=== PATIENT | female | born 1950 ===

== ENCOUNTER 2021-03-30 18:12 | Inpatient (IN) | payer MEDICARE, OTHER ==
[~2021-03-30] VITALS: Ht 172.7 cm; Wt 87.4 kg
--- NOTE | 2021-03-30 18:29 | NUR ---
BIB EMS FROM [facility] FOR FEVERS, NIGHT SWEATS, N/V AND SOME DIARRHEA. PER PT HAD TEMP 101F 3 DAYS AGO. SICK CONTACT AT HOME WHO HAD A "BAD COLD". PT HAS BEEN USING HER INHALER W/ SOME RELIEF. DIZZINESS WHEN STANDING. IN ROOM PT NOTED TO INCREASE HR TO 184-190. ERP DR. FORTE MADE AWARE STAT. PT IN THIS RHYTM FOR 10-15 SECONDS THEN GOES BACK TO HR 90-92. EKG COMPLETED. PT GIVEN LEVOFLOXACIN 750 MG IV AND KDUR 40 MEQ PO. PT WAS DX W/ GIB (HGB 7.5, HCT. 23.3, GUAIC+), COPD EXACERBATION, HYPOKALEMIA, ANEMIA. VS CERTIFIED FIRST ASSISTANT HR 95, BP 106/64, RR 17, 97% RA. PT RESTING ON GURNEY. NADN. MONITORS APPLIED. VSS. ERP DR. FORTE AT BEDSIDE FOR EVAL. AWARE OF PT TEMP 103.0
[2021-03-30] MEDS ORDERED: ACETAMINOPHEN 500 MG TABLET ONE (18:44)
[2021-03-30] MEDS ORDERED: ACETAMINOPHEN 500 MG TABLET PO ONE ×2 (19:00)
[2021-03-30 19:13] LABS: MEAN CORPUSCULAR HEMOGLOBIN 36.1 pg (27.0-34.8); MEAN CORPUSCULAR HGB CONC 32.9 g/dL (32.4-35.8); MEAN PLATELET VOLUME 9.9 fL (7.4-10.4); PLATELET COUNT 207 x10^3/uL (130-400); RED BLOOD COUNT 2.04 x10^6/uL (3.82-5.3); RED CELL DISTRIBUTION WIDTH 19.4 % (9.6-15.2)
[2021-03-30 19:22] LABS: ANION GAP 9 mmol/L (5-15); CALCIUM 8.1 mg/dL (8.5-10.1); CHLORIDE 104 mmol/L (98-107); CREATININE 1.25 mg/dL (0.55-1.02)
[2021-03-30] MEDS ORDERED: SODIUM CHLORIDE FLUSH 10ML SYR IVF ONE (19:30)
--- NOTE | 2021-03-30 19:38 | NUR ---
PT TEMP NOTED TO DECREASE TO 102.5 W/ BP NOW AT 91/39. ERP DR. FORTE NOTIFIED.
[2021-03-30 19:43] LABS: <PLATELET ESTIMATE> ADEQUATE; BAND#(MANUAL) 0.91 x10^3/uL; BANDS%(MANUAL) 7 % (0-7); LYMPH#(MANUAL) 1.04 x10^3/uL (1-3.4); LYMPHS% (MANUAL) 8 % (22-44); MONOS#(MANUAL) 1.04 x10^3/uL (0.3-2.7); MONOS% (MANUAL) 8 % (2-9); SEG#(MANUAL) 10.01 x10^3/uL (1.8-6.8); SEGS% (MANUAL) 77 % (42-75)
--- NOTE | 2021-03-30 19:43 | NUR ---
PER ERP DR. FORTE PT HAS POSSIBLE GIB NO IBUPROFEN FOR TEMP. ATTEMPT IVF AND ICE UNDER ARMPITS TO COOL PT AND GIVE TYLENOL LONGER TIME TO BRING TEMP DOWN.
[2021-03-30 19:44] LABS: LARGE PLATELETS 1+
[2021-03-30 19:45] LABS: ANISOCYTOSIS 1+; MICROCYTOSIS 1+; OVALOCYTES 1+
[2021-03-30 19:46] LABS: HYPOCHROMIA 1+; POLYCHROMASIA 1+; TEAR DROPS 1+
[2021-03-30] MEDS ORDERED: SODIUM CHLORIDE 0.9% 1,000ML IVBOLUS ONE (20:00)
--- NOTE | 2021-03-30 20:05 | NUR ---
PER BLOOD BANK PT HAS ANTIBODIES IN BLOOD AND IT MAY TAKE WELL OVER AN HR TO GET THE BLOOD PT NEEDS. PER ERP DR. FORTE PT OKAY TO WAIT. DARYL IN ED NEGATIVE.
[2021-03-30] MEDS ORDERED: AMLO-211 PO (20:10)
[2021-03-30] MEDS ORDERED: ALEN10TA10 PO (20:10)
[2021-03-30] MEDS ORDERED: PANT40TA6 PO (20:10)
[2021-03-30] MEDS ORDERED: HYDR-826 PO (20:10)
[2021-03-30] MEDS ORDERED: FERR324T5 PO (20:10)
[2021-03-30] MEDS ORDERED: TIOT18CA INH (20:10)
[2021-03-30] MEDS ORDERED: VENL150C PO (20:10)
[2021-03-30] MEDS ORDERED: OXYB5TAB10 PO (20:10)
[2021-03-30] MEDS ORDERED: ESTR1TAB17 PO (20:10)
[2021-03-30] MEDS ORDERED: ALBU18HF INH (20:10)
--- NOTE | 2021-03-30 20:37 | NUR ---
PT RESTING ON GURNEY. NADN. CARROLL.
--- NOTE | 2021-03-30 20:43 | NUR ---
Joesph LANDRY AT BEDSIDE FOR ADMISSION.
--- NOTE | 2021-03-30 20:56 | NUR ---
BEDSIDE REPORT RECEIVED FROM HELDER DISLA
--- NOTE | 2021-03-30 20:56 | NUR ---
REPORT GIVEN TO TOYA HILLMAN RN.
[2021-03-30 21:17] LABS: MICROSCOPIC INDICATED
[2021-03-30 21:59] VITALS: BP 93/43
[2021-03-30] MEDS ORDERED: ACETAMINOPHEN 325 MG TABLET PO PRN (22:00)
[2021-03-30] MEDS ORDERED: MELATONIN 5 MG TABLET PO PRN (22:00)
[2021-03-30] MEDS ORDERED: ONDANSETRON 2MG/ML, 2ML IVPush PRN (22:00)
[2021-03-30] MEDS ORDERED: DOCUSATE 100 MG CAPSULE PO PRN (22:00)
[2021-03-30] MEDS: SODIUM CHLORIDE 0.9% 1,000 ML IV SCH (22:00)
[2021-03-30] MEDS ORDERED: SODIUM CHLORIDE FLUSH 10ML SYR IVF PRN (22:00)
--- NOTE | 2021-03-30 22:06 | NUR ---
Pt to be admitted to [facility], room 401. Report called to BRODY DISLA.
[2021-03-30 22:15] VITALS: BP 104/45
[2021-03-30] MEDS ORDERED: LIDODERM 5% PATCH TD PRN (22:30)
[2021-03-30] MEDS ORDERED: ALBUTEROL HFA 90 MCG/SPRAY INH PRN (22:30)
[2021-03-30 23:17] VITALS: BP 100/60
[2021-03-30 23:27] VITALS: BP 102/65
[2021-03-30 23:54] VITALS: BP 98/61
[2021-03-31] VITALS (7 sets, daily range): BP systolic 99–115; BP diastolic 59–68
[2021-03-31] MEDS ORDERED: POTASSIUM CHLORIDE 20 MEQ TAB.ER.PRT PO ONE (00:30)
[2021-03-31] MEDS ORDERED: PANTOPRAZOLE 40 MG IV IVPush SCH (07:30)
[2021-03-31] MEDS: TIOTROPIUM BROMIDE 18 MCG/INH INH SCH (09:00)
[2021-03-31 09:20] LABS: CALCIUM 7.5 mg/dL (8.5-10.1); CHLORIDE 116 mmol/L (98-107); MEAN CORPUSCULAR HEMOGLOBIN 34.4 pg (27.0-34.8); MEAN CORPUSCULAR HGB CONC 33.6 g/dL (32.4-35.8); MEAN PLATELET VOLUME 9.2 fL (7.4-10.4); PLATELET COUNT 152 x10^3/uL (130-400); RED BLOOD COUNT 2.43 x10^6/uL (3.82-5.3); RED CELL DISTRIBUTION WIDTH 24.1 % (9.6-15.2)
[2021-03-31 09:26] LABS: ANION GAP 5 mmol/L (5-15)
[2021-03-31] MEDS ORDERED: CEFTRIAXONE 2 GM in DEXTROSE 5% 50 ML IVPB SCH (09:30)
[2021-03-31] MEDS: AZITHROMYCIN 500 MG TABLET PO SCH (10:36)
[2021-03-31] MEDS: PANTOPRAZOLE 40MG TABLET PO SCH (10:37)
[2021-03-31] MEDS: FERROUS SULFATE 325 MG TABLET PO SCH ×2 (10:37→18:28)
[2021-03-31] MEDS: OXYBUTYNIN CHLORIDE 5 MG TABLET PO SCH ×2 (10:37→20:51)
[2021-03-31] MEDS: VENLAFAXINE 75 MG CAP ER PO SCH (10:37)
[2021-03-31] MEDS: ESTRADIOL 1 MG TABLET PO SCH (10:38)
[2021-03-31 10:50] LABS: BAND#(MANUAL) 1.71 x10^3/uL; BANDS%(MANUAL) 18 % (0-7); LYMPH#(MANUAL) 0.86 x10^3/uL (1-3.4); LYMPHS% (MANUAL) 9 % (22-44); METAMYELOCYTES# (MANUAL) 0.38 x10^3/uL (0-0); METAMYELOCYTES% (MANUAL) 4 % (0-1); MONOS#(MANUAL) 0.86 x10^3/uL (0.3-2.7); MONOS% (MANUAL) 9 % (2-9); MYELOCYTES% (MANUAL) 1 % (0-0); SEG#(MANUAL) 5.61 x10^3/uL (1.8-6.8); SEGS% (MANUAL) 59 % (42-75)
[2021-03-31 10:51] LABS: <PLATELET ESTIMATE> ADEQUATE; <PLT MORPHOLOGY> NORMAL PLT MORPH; ANISOCYTOSIS 2+
[2021-03-31 10:52] LABS: OVALOCYTES 1+; POLYCHROMASIA 1+; TEAR DROPS 1+
[2021-03-31] MEDS ORDERED: LEVOFLOXACIN/PMX 750MG/150ML 150 ML IV SCH (12:00)
[2021-03-31] MEDS: SODIUM CHLORIDE 0.9% 1,000 ML IV SCH ×2 (12:54→20:50)
[2021-04-01 01:47] VITALS: BP 105/65
[2021-04-01] MEDS: SODIUM CHLORIDE 0.9% 1,000 ML IV SCH ×3 (05:20→21:28)
[2021-04-01 06:33] LABS: MEAN CORPUSCULAR HEMOGLOBIN 34.9 pg (27.0-34.8); MEAN CORPUSCULAR HGB CONC 33.4 g/dL (32.4-35.8); MEAN PLATELET VOLUME 9.3 fL (7.4-10.4); PLATELET COUNT 144 x10^3/uL (130-400); RED BLOOD COUNT 2.42 x10^6/uL (3.82-5.3)
[2021-04-01 06:37] LABS: CHLORIDE 117 mmol/L (98-107)
[2021-04-01 06:47] LABS: ALANINE AMINOTRANSFERASE 24 U/L (12-78); ALBUMIN 2.2 g/dL (3.4-5.0); ALKALINE PHOSPHATASE 60 U/L (45-117); ANION GAP 5 mmol/L (5-15); BILIRUBIN,TOTAL 0.4 mg/dL (0.2-1.0); CALCIUM 7.5 mg/dL (8.5-10.1); CREATININE 0.83 mg/dL (0.55-1.02); TOTAL PROTEIN 6.1 g/dL (6.4-8.2)
[2021-04-01 07:02] LABS: <PLATELET ESTIMATE> ADEQUATE; <PLT MORPHOLOGY> NORMAL PLT MORPH; ANISOCYTOSIS 2+; BAND#(MANUAL) 0.15 x10^3/uL; BANDS%(MANUAL) 2 % (0-7); LYMPH#(MANUAL) 1.73 x10^3/uL (1-3.4); LYMPHS% (MANUAL) 23 % (22-44); METAMYELOCYTES# (MANUAL) 0.38 x10^3/uL (0-0); METAMYELOCYTES% (MANUAL) 5 % (0-1); MICROCYTOSIS 1+; MONOS#(MANUAL) 0.53 x10^3/uL (0.3-2.7); MONOS% (MANUAL) 7 % (2-9); MYELOCYTES# (MANUAL) 0.15 x10^3/uL (0-0); MYELOCYTES% (MANUAL) 2 % (0-0); OVALOCYTES 1+; POLYCHROMASIA 1+; SEG#(MANUAL) 4.58 x10^3/uL (1.8-6.8); SEGS% (MANUAL) 61 % (42-75); TEAR DROPS 1+
[2021-04-01 08:31] VITALS: BP 100/57
[2021-04-01] MEDS: AZITHROMYCIN 500 MG TABLET PO SCH (08:37)
[2021-04-01] MEDS: ESTRADIOL 1 MG TABLET PO SCH (08:37)
[2021-04-01] MEDS: VENLAFAXINE 75 MG CAP ER PO SCH (08:37)
[2021-04-01] MEDS: OXYBUTYNIN CHLORIDE 5 MG TABLET PO SCH ×2 (08:38→20:39)
[2021-04-01 09:26] LABS: OCCULT BLOOD NEGATIVE (NEGATIVE)
[2021-04-01] MEDS: PIPERACILLIN/TAZO 3.375 GM in DEXTROSE 5% 50 ML IVPB SCH ×2 (09:29→17:05)
[2021-04-01] MEDS: PANTOPRAZOLE 40MG TABLET PO SCH (09:29)
[2021-04-01] MEDS: FERROUS SULFATE 325 MG TABLET PO SCH ×2 (09:29→17:22)
[2021-04-01] MEDS: TIOTROPIUM BROMIDE 18 MCG/INH INH SCH (09:30)
[2021-04-01 13:25] VITALS: BP 105/67
[2021-04-01 19:15] VITALS: BP 109/73
[2021-04-02] MEDS: PIPERACILLIN/TAZO 3.375 GM in DEXTROSE 5% 50 ML IVPB SCH ×3 (01:10→16:11)
[2021-04-02 01:45] VITALS: BP 101/68
[2021-04-02 06:27] LABS: MEAN CORPUSCULAR HGB CONC 32.6 g/dL (32.4-35.8); MEAN PLATELET VOLUME 10.9 fL (7.4-10.4); PLATELET COUNT 173 x10^3/uL (130-400); RED CELL DISTRIBUTION WIDTH 24.4 % (9.6-15.2)
[2021-04-02 06:33] LABS: ALBUMIN 2.1 g/dL (3.4-5.0); ANION GAP 7 mmol/L (5-15); CALCIUM 7.6 mg/dL (8.5-10.1); CHLORIDE 116 mmol/L (98-107)
[2021-04-02] MEDS: PANTOPRAZOLE 40MG TABLET PO SCH (06:34)
[2021-04-02] MEDS: SODIUM CHLORIDE 0.9% 1,000 ML IV SCH ×2 (06:35→14:17)
[2021-04-02 06:36] LABS: ALANINE AMINOTRANSFERASE 24 U/L (12-78); ALKALINE PHOSPHATASE 65 U/L (45-117); BILIRUBIN,TOTAL 0.6 mg/dL (0.2-1.0); CREATININE 0.84 mg/dL (0.55-1.02); TOTAL PROTEIN 5.9 g/dL (6.4-8.2)
[2021-04-02 06:48] VITALS: BP 105/61
[2021-04-02 07:08] LABS: METAMYELOCYTES# (MANUAL) 0.14 x10^3/uL (0-0); METAMYELOCYTES% (MANUAL) 2 % (0-1)
[2021-04-02 07:09] LABS: <PLATELET ESTIMATE> ADEQUATE; ANISOCYTOSIS 2+; BAND#(MANUAL) 1.09 x10^3/uL; BANDS%(MANUAL) 16 % (0-7); EOS#(MANUAL) 0.07 x10^3/uL (0.0-0.4); EOS% (MANUAL) 1 % (1-7); LYMPH#(MANUAL) 1.43 x10^3/uL (1-3.4); LYMPHS% (MANUAL) 21 % (22-44); MONOS#(MANUAL) 0.61 x10^3/uL (0.3-2.7); MONOS% (MANUAL) 9 % (2-9); OVALOCYTES 1+; SEG#(MANUAL) 3.47 x10^3/uL (1.8-6.8); SEGS% (MANUAL) 51 % (42-75); TEAR DROPS 1+
[2021-04-02 07:10] LABS: <PLT MORPHOLOGY> NORMAL PLT MORPH
[2021-04-02] MEDS: ESTRADIOL 1 MG TABLET PO SCH (08:42)
[2021-04-02] MEDS: AZITHROMYCIN 500 MG TABLET PO SCH (08:43)
[2021-04-02] MEDS: OXYBUTYNIN CHLORIDE 5 MG TABLET PO SCH ×2 (08:43→21:53)
[2021-04-02] MEDS: FERROUS SULFATE 325 MG TABLET PO SCH ×2 (08:43→16:11)
[2021-04-02] MEDS: VENLAFAXINE 75 MG CAP ER PO SCH (08:43)
[2021-04-02] MEDS: TIOTROPIUM BROMIDE 18 MCG/INH INH SCH (08:44)
[2021-04-02] MEDS ORDERED: CODEINE SULFATE 30 MG TABLET PO PRN (12:00)
[2021-04-02] MEDS ORDERED: BISACODYL 10 MG SUPP PR PRN (12:30)
[2021-04-02] MEDS ORDERED: GUAIFENESIN/COD200MG-20MG/10ML LIQUID PO PRN (13:00)
[2021-04-02 14:00] VITALS: BP 105/69
[2021-04-02] MEDS: POLYETHYLENE GLYCOL 17 GM PACKET NG SCH (14:17)
[2021-04-02 18:05] LABS: OCCULT BLOOD NEGATIVE (NEGATIVE)
[2021-04-02 18:30] VITALS: BP 107/59
[2021-04-02] MEDS: DOCUSATE 100 MG CAPSULE PO SCH (21:53)
[2021-04-03 00:53] VITALS: BP 113/68
[2021-04-03] MEDS: PIPERACILLIN/TAZO 3.375 GM in DEXTROSE 5% 50 ML IVPB SCH ×3 (01:11→17:07)
[2021-04-03 06:23] LABS: MEAN CORPUSCULAR HGB CONC 32.5 g/dL (32.4-35.8); MEAN PLATELET VOLUME 10.5 fL (7.4-10.4); PLATELET COUNT 191 x10^3/uL (130-400); RED BLOOD COUNT 2.37 x10^6/uL (3.82-5.3); RED CELL DISTRIBUTION WIDTH 23.6 % (9.6-15.2)
[2021-04-03 06:54] LABS: BASOS#(MANUAL) 0.13 x10^3/uL (0-0.1); BASOS% (MANUAL) 2 % (0-1); EOS#(MANUAL) 0.07 x10^3/uL (0.0-0.4); EOS% (MANUAL) 1 % (1-7); LYMPH#(MANUAL) 1.12 x10^3/uL (1-3.4); LYMPHS% (MANUAL) 17 % (22-44); MONOS#(MANUAL) 0.46 x10^3/uL (0.3-2.7); MONOS% (MANUAL) 7 % (2-9)
[2021-04-03 06:55] LABS: BAND#(MANUAL) 0.53 x10^3/uL; BANDS%(MANUAL) 8 % (0-7); METAMYELOCYTES# (MANUAL) 0.07 x10^3/uL (0-0); METAMYELOCYTES% (MANUAL) 1 % (0-1); SEG#(MANUAL) 4.22 x10^3/uL (1.8-6.8); SEGS% (MANUAL) 64 % (42-75)
[2021-04-03 06:57] LABS: <PLATELET ESTIMATE> ADEQUATE; <PLT MORPHOLOGY> NORMAL PLT MORPH; ANISOCYTOSIS 1+; OVALOCYTES 1+; TEAR DROPS 1+
[2021-04-03 08:13] VITALS: BP 117/65
[2021-04-03] MEDS: DOCUSATE 100 MG CAPSULE PO SCH ×2 (09:00→21:17)
[2021-04-03] MEDS: POLYETHYLENE GLYCOL 17 GM PACKET NG SCH (09:00)
[2021-04-03] MEDS: FERROUS SULFATE 325 MG TABLET PO SCH ×2 (10:52→17:07)
[2021-04-03] MEDS: ESTRADIOL 1 MG TABLET PO SCH (10:52)
[2021-04-03] MEDS: AZITHROMYCIN 500 MG TABLET PO SCH (10:52)
[2021-04-03] MEDS: VENLAFAXINE 75 MG CAP ER PO SCH (10:52)
[2021-04-03] MEDS: SODIUM CHLORIDE 0.9% 1,000 ML IV SCH (10:52)
[2021-04-03] MEDS: OXYBUTYNIN CHLORIDE 5 MG TABLET PO SCH ×2 (10:52→21:16)
[2021-04-03] MEDS: TIOTROPIUM BROMIDE 18 MCG/INH INH SCH (10:53)
[2021-04-03 10:59] LABS: OCCULT BLOOD NEGATIVE (NEGATIVE)
[2021-04-03] MEDS: PANTOPRAZOLE 40MG TABLET PO SCH (11:12)
[2021-04-03 14:23] VITALS: BP 106/68
[2021-04-03 17:05] VITALS: BP 117/63
[2021-04-03] MEDS: METOPROLOL TARTRATE 25 MG TAB PO SCH (17:07)
[2021-04-03 19:07] VITALS: BP 117/63
[2021-04-03] MEDS: APIXABAN 5 MG TABLET PO SCH (21:17)
[2021-04-04] MEDS: PIPERACILLIN/TAZO 3.375 GM in DEXTROSE 5% 50 ML IVPB SCH ×3 (01:06→16:27)
[2021-04-04 01:58] VITALS: BP 119/65
[2021-04-04] MEDS: METOPROLOL TARTRATE 25 MG TAB PO SCH ×2 (06:00→17:37)
[2021-04-04 07:51] VITALS: BP 125/68
[2021-04-04] MEDS: DOCUSATE 100 MG CAPSULE PO SCH ×2 (08:13→22:32)
[2021-04-04] MEDS: POLYETHYLENE GLYCOL 17 GM PACKET NG SCH (08:13)
[2021-04-04] MEDS: AZITHROMYCIN 500 MG TABLET PO SCH (08:14)
[2021-04-04] MEDS: APIXABAN 5 MG TABLET PO SCH ×2 (08:14→22:32)
[2021-04-04] MEDS: ESTRADIOL 1 MG TABLET PO SCH (08:15)
[2021-04-04] MEDS: VENLAFAXINE 75 MG CAP ER PO SCH (08:15)
[2021-04-04] MEDS: FERROUS SULFATE 325 MG TABLET PO SCH ×2 (08:15→16:27)
[2021-04-04] MEDS: OXYBUTYNIN CHLORIDE 5 MG TABLET PO SCH ×2 (08:15→22:31)
[2021-04-04] MEDS: PANTOPRAZOLE 40MG TABLET PO SCH (08:20)
[2021-04-04] MEDS: TIOTROPIUM BROMIDE 18 MCG/INH INH SCH (08:21)
[2021-04-04 10:48] LABS: MEAN CORPUSCULAR HGB CONC 32.7 g/dL (32.4-35.8); MEAN PLATELET VOLUME 10.8 fL (7.4-10.4); PLATELET COUNT 215 x10^3/uL (130-400); RED BLOOD COUNT 2.36 x10^6/uL (3.82-5.3)
[2021-04-04 11:39] LABS: ANISOCYTOSIS 1+; BAND#(MANUAL) 0.29 x10^3/uL; BANDS%(MANUAL) 5 % (0-7); EOS#(MANUAL) 0.23 x10^3/uL (0.0-0.4); EOS% (MANUAL) 4 % (1-7); LYMPH#(MANUAL) 1.03 x10^3/uL (1-3.4); LYMPHS% (MANUAL) 18 % (22-44); METAMYELOCYTES# (MANUAL) 0.06 x10^3/uL (0-0); METAMYELOCYTES% (MANUAL) 1 % (0-1); MONOS#(MANUAL) 0.57 x10^3/uL (0.3-2.7); MONOS% (MANUAL) 10 % (2-9); MYELOCYTES# (MANUAL) 0.06 x10^3/uL (0-0); MYELOCYTES% (MANUAL) 1 % (0-0); OVALOCYTES 1+; SEG#(MANUAL) 3.48 x10^3/uL (1.8-6.8); SEGS% (MANUAL) 61 % (42-75)
[2021-04-04 11:40] LABS: <PLATELET ESTIMATE> ADEQUATE; <PLT MORPHOLOGY> NORMAL PLT MORPH; TEAR DROPS 1+
[2021-04-04 12:07] VITALS: BP 146/70
[2021-04-04 17:37] VITALS: BP 119/69
[2021-04-04 18:28] VITALS: BP 113/68
[2021-04-05] MEDS: PIPERACILLIN/TAZO 3.375 GM in DEXTROSE 5% 50 ML IVPB SCH ×3 (01:20→13:34)
[2021-04-05 01:36] VITALS: BP 109/60
[2021-04-05 03:46] LABS: MEAN CORPUSCULAR HEMOGLOBIN 34.2 pg (27.0-34.8); MEAN CORPUSCULAR HGB CONC 33.1 g/dL (32.4-35.8); MEAN PLATELET VOLUME 10.4 fL (7.4-10.4); PLATELET COUNT 223 x10^3/uL (130-400); RED BLOOD COUNT 2.45 x10^6/uL (3.82-5.3); RED CELL DISTRIBUTION WIDTH 22.7 % (9.6-15.2)
[2021-04-05 03:56] LABS: ANION GAP 5 mmol/L (5-15); CALCIUM 8.9 mg/dL (8.5-10.1); CHLORIDE 111 mmol/L (98-107); CREATININE 0.83 mg/dL (0.55-1.02)
[2021-04-05 04:30] LABS: ANISOCYTOSIS 1+; BAND#(MANUAL) 0.74 x10^3/uL; BANDS%(MANUAL) 11 % (0-7); BASOS#(MANUAL) 0.07 x10^3/uL (0-0.1); BASOS% (MANUAL) 1 % (0-1); EOS#(MANUAL) 0.13 x10^3/uL (0.0-0.4); EOS% (MANUAL) 2 % (1-7); LYMPH#(MANUAL) 1.34 x10^3/uL (1-3.4); LYMPHS% (MANUAL) 20 % (22-44); METAMYELOCYTES# (MANUAL) 0.07 x10^3/uL (0-0); METAMYELOCYTES% (MANUAL) 1 % (0-1); MONOS#(MANUAL) 0.34 x10^3/uL (0.3-2.7); MONOS% (MANUAL) 5 % (2-9); SEG#(MANUAL) 4.02 x10^3/uL (1.8-6.8); SEGS% (MANUAL) 60 % (42-75)
[2021-04-05 04:31] LABS: <PLATELET ESTIMATE> ADEQUATE; <PLT MORPHOLOGY> NORMAL PLT MORPH; OVALOCYTES 1+; TEAR DROPS 1+
[2021-04-05] MEDS: METOPROLOL TARTRATE 25 MG TAB PO SCH (06:00)
[2021-04-05] MEDS: TIOTROPIUM BROMIDE 18 MCG/INH INH SCH (08:35)
[2021-04-05] MEDS: ESTRADIOL 1 MG TABLET PO SCH (08:37)
[2021-04-05] MEDS: OXYBUTYNIN CHLORIDE 5 MG TABLET PO SCH (08:37)
[2021-04-05] MEDS: AZITHROMYCIN 500 MG TABLET PO SCH (08:37)
[2021-04-05] MEDS: APIXABAN 5 MG TABLET PO SCH (08:37)
[2021-04-05] MEDS: FERROUS SULFATE 325 MG TABLET PO SCH (08:38)
[2021-04-05] MEDS: DOCUSATE 100 MG CAPSULE PO SCH (08:38)
[2021-04-05] MEDS: VENLAFAXINE 75 MG CAP ER PO SCH (08:38)
[2021-04-05] MEDS: PANTOPRAZOLE 40MG TABLET PO SCH (08:38)
[2021-04-05] MEDS: POLYETHYLENE GLYCOL 17 GM PACKET NG SCH (08:38)
[2021-04-05 08:47] VITALS: BP 127/65
[2021-04-05] MEDS ORDERED: AMLO2.5T5 PO (11:58)
[2021-04-05] MEDS ORDERED: AMOX1TAB64 PO (11:58)
[2021-04-05] MEDS ORDERED: APIX5TAB PO (11:58)
[2021-04-06] MEDS ORDERED: AMLO2.5T5 PO (11:08)
[2021-04-06] MEDS ORDERED: AMOX1TAB64 PO (11:08)
[2021-04-06] MEDS ORDERED: APIX5TAB PO (11:08)
== END 2021-04-05 14:56 | disposition home or self-care (01) | DRG 871 ==
LOC: ED 22:34 → EDIP 22:35 → 4WST 22:46
PROVIDERS: ADMIT Internal Medicine; ATTEND Internal Medicine
PROC: 30233N1 Transfusion of Nonautologous Red Blood Cells into Peripheral Vein, Percutaneous Approach (ICD-10-PCS; principal; 2021-03-30)
DX: A41.9 Sepsis, unspecified organism (principal); J18.9 Pneumonia, unspecified organism; N17.0 Acute kidney failure with tubular necrosis; J44.0 Chronic obstructive pulmonary disease with (acute) lower respiratory infection; J96.11 Chronic respiratory failure with hypoxia; N10 Acute pyelonephritis; Z20.822 Contact with and (suspected) exposure to COVID-19; B96.20 Unspecified Escherichia coli [E. coli] as the cause of diseases classified elsewhere; D50.9 Iron deficiency anemia, unspecified; D63.8 Anemia in other chronic diseases classified elsewhere; F32.9 Major depressive disorder, single episode, unspecified; F41.1 Generalized anxiety disorder; I10 Essential (primary) hypertension; I48.0 Paroxysmal atrial fibrillation; M19.90 Unspecified osteoarthritis, unspecified site; N32.81 Overactive bladder; K21.9 Gastro-esophageal reflux disease without esophagitis; R53.83 Other fatigue; R65.20 Severe sepsis without septic shock; Z79.01 Long term (current) use of anticoagulants; Z86.14 Personal history of Methicillin resistant Staphylococcus aureus infection; Z87.440 Personal history of urinary (tract) infections; Z88.1 Allergy status to other antibiotic agents; Z99.81 Dependence on supplemental oxygen
CPT/HCPCS: 36415; 36430; 71250; 80048; 80053; 81001; 82040; 82272; 82728; 83540; 83550; 83735; 84443; 85025; 86632; 86738; 86850; 86870; 86900; 86922; 86923; 87040; 87077; 87086; 87186; 93005; 93306; 96360; 96361; 99285; G0378; J0696; J2543; U0005; J7030; P9016; Q0177; U0003